=== PATIENT | female | born 1980 | race Caucasian/White ===

== ENCOUNTER 2019-02-13 05:19 | Inpatient (IN) | payer OTHER ==
[~2019-02-13] VITALS: Ht 162.6 cm; Wt 59.9 kg
[2019-02-13] MEDS ORDERED: PRENATAL TABLE1 EAC2 PO (06:11)
[2019-02-13] MEDS ORDERED: IRON 100 PLUS1 EACH PO (06:12)
== END 2019-02-15 15:59 | disposition home or self-care (01) | DRG 807 ==
LOC: OB/GYN 05:19 → LDR 05:19 → OB/GYN 19:23
PROVIDERS: ADMIT Specialist
PROC: 10E0XZZ Delivery of Products of Conception, External Approach (ICD-10-PCS; principal; 2019-02-13)
PROC: 10907ZC Drainage of Amniotic Fluid, Therapeutic from Products of Conception, Via Natural or Artificial Opening (ICD-10-PCS; 2019-02-13)
PROC: 0W8NXZZ Division of Female Perineum, External Approach (ICD-10-PCS; 2019-02-13)
PROC: 4A1HXCZ Monitoring of Products of Conception, Cardiac Rate, External Approach (ICD-10-PCS; 2019-02-13)
DX: O80 Encounter for full-term uncomplicated delivery (principal); Z37.0 Single live birth; Z3A.38 38 weeks gestation of pregnancy